=== PATIENT | male | born 2000 | race Caucasian/White ===

== ENCOUNTER 2021-12-07 13:19 | Emergency (ER) | payer OTHER, SELFPAY ==
[2021-12-07 15:11] VITALS: BP 112/70; PULSE 67; RESP 21; TEMP 36.6; O2SAT 99; BMI 18.3
--- NOTE | 2021-12-07 15:30 | HMH.EDUTC ---
[facility] [place] Clinical Impression: Strep throat, Ingrown left big toenail Disposition: Home, Self-Care Condition on Discharge: Good Instructions: Ingrown Toenail, DI for Ingrown Toenail, Cephalexin, DI for Strep Throat Additional Instructions: *Monitor Temp, Over the counter Motrin or Tylenol as directed/as needed Tylenol every 4 hours and Motrin every 6 hours (as long as your family doctor has told you that you can take it) for fever or pain. and straight to ER if unable to lower temp less than 101.0 after medication given *Warm salt water gargles may help to soothe the throat *Throat Lozenges *Warm fluids like tea with honey may help to soothe the throat *Sleep elevated *Humidifier/Vaporizer *If you did not take Penicillin shot or was unable to, start taking antibiotic immediately and make sure that you take it for the FULL length of time although you should start to feel better in 24-48 hours *change toothbrush and toothpaste 24-48 hours after starting to take antibiotics so you do not reinfect yourself Monitor Temp. Tylenol and/or Ibuprofen as needed. ER if fever is no less than 101 despite alternating Tylenol and Ibuprofen * Encourage fluids, water, Gatorade, powerade, pedialyte if /toddler/or child *Cold fluids, popsicles and ice cream may feel good on his throat Follow up IMMEDIATELY for new or worsening symptoms or no Noticeable improvement over the next 48-72 hours. 911 for difficulty breathing or swallowing Soak foot in warm water and epson salt and apply topical antibiotic as directed Follow up with your Family Doctor for further treatment and evaluation Return if needed Prescriptions: cephALEXin [cephALEXin 500mg capsule*] 500 mg PO Q8HP 10 Days #30 cap Transmission Status: P[facility] to [facility] Mupirocin Calcium [Mupirocin 2% Cream 15gm] 1 applicatio TP TID 10 Days #15 gm Transmission Status: Pending to [facility] Referrals: Daniela Amos PA [Primary Care Provider] - As needed Forms: Work/School Release Time of Disposition: 15:43 Medical Decision Making - Jad Inquiry Pt receiving controlled substance: No Jad was queried for this patient: No Vital Signs: 12/07/21 15:11 Temperature 98 F Temperature Source Oral Pulse Rate [Left] 67 Respiratory Rate 21 Blood Pressure [Right Arm] 112/70 Blood Pressure Mean [Right Arm] 84 02 Sat by Pulse Oximetry 99 - Lab Data Lab results reviewed: Yes: I reviewed the patient's lab results. [facility] [place] - General Stated complaint: Infection on toe Time Seen by Provider: 12/07/21 15:30 Mode of Arrival: Ambulatory Source of Information: Patient Limitations: No Limitations Description of Symptoms (Recalled from Triage Doc. by RN): PT C/O INFECTION IN TOE (L) SPREADING THROUGH BODY. X1WK HEENT Symptoms (Recalled from RN notes): No Resp Symptoms (Recalled from RN notes): No Skin Symptoms (Recalled from RN notes): Yes MS Symptoms (Recalled from RN notes): No Functional Status (Recalled from RN notes): WNL - History of Present Illness Provider Complaint: Patient states that he thinks he may have an ingrown toenail that is infected and draining and having sore throat States that his throat is hurting when he swallows and in the sides of his neck and someone told him that he needed to get checked to see if the infection is spreading in his body - Related Data Previous Rx's Medication Instructions Recorded varenicline 0.5 mg (11)-1 mg (42) See Rx Instructions PO PER PKG DIR 01/25/21 tablets in a dose pack 28 Days #53 tab Mupirocin Calcium [Mupirocin 2% 1 applicatio TP TID 10 Days #15 gm 12/07/21 Cream 15gm] cephALEXin [cephALEXin 500mg 500 mg PO Q8HP 10 Days #30 cap 12/07/21 capsule*] Allergies Allergy/AdvReac Type Severity Reaction Status Date / Time No Known Allergies Allergy Unverified 04/21/19 15:02 - Worker's Comp Is this a Worker's Comp case?: No [facility] History - Hepatitis A Screen
[2021-12-07 15:39] LABS: UTC Strep Screen (Rapid) Positive (Negative)
[2021-12-07 15:53] VITALS: BP 112/70; PULSE 67; RESP 21; TEMP 36.6
== END 2021-12-07 15:56 | disposition home or self-care (01) ==
LOC: ER 13:22 → UTC 13:23
PROVIDERS: Nurse Practitioner; Emergency Provider Emergency Medicine; PCP Physician Assistant
DX: J02.0 Streptococcal pharyngitis (principal); L60.0 Ingrowing nail
CPT/HCPCS: 87880; 99212; G0463

== ENCOUNTER 2022-01-28 19:41 | Emergency (ER) | payer OTHER, SELFPAY ==
[2022-01-28 20:12] VITALS: BP 125/68; PULSE 89; RESP 18; TEMP 36.8; O2SAT 99
== END 2022-01-28 20:13 | disposition left against medical advice (07) ==
PROVIDERS: Emergency Provider Emergency Medicine; PCP Physician Assistant
DX: Z53.21 Procedure and treatment not carried out due to patient leaving prior to being seen by health care provider (principal)
CPT/HCPCS: 99211

== ENCOUNTER 2022-05-17 15:17 | Emergency (ER) | payer OTHER, SELFPAY ==
[2022-05-17 16:19] VITALS: BP 122/78; PULSE 69; RESP 19; TEMP 36.7; O2SAT 98; BMI 27.7
--- NOTE | 2022-05-17 16:21 | EXP.UTC ---
Discharge Plan Disposition Patient Disposition: Home, Self-Care Condition: Good Prescriptions Prescriptions: No Action tramadol 50 mg tablet 50 mg PO TID Qty: 10 0RF clindamycin HCl 300 mg capsule 300 mg PO TID 10 Days Qty: 30 0RF terbinafine HCl 250 mg tablet 250 mg PO DAILY Qty: 21 0RF Referrals Referrals: Daniela Amos PA [Primary Care Provider] - Enter time for follow up Activity Restrictions/Add. Instructions Additional Instructions/Restrictions: *Monitor Temp, Over the counter Motrin or Tylenol as directed/as needed Tylenol every 4 hours and Motrin every 6 hours (as long as your family doctor has told you that you can take it) for fever or pain. and straight to ER if unable to lower temp less than 101.0 after medication given *Warm salt water gargles may help to soothe the throat *Throat Lozenges? *Warm fluids like tea with honey may help to soothe the throat? *Sleep elevated *Humidifier/Vaporizer Your throat swab was sent for culture. Those results are typically sent to your primary care. Be sure to follow up in 2-3 days with your family doctor/primary care physician if no improvement so they can review those result and treat if necessary. If you don?t have a primary care doctor, I recommend you get one but in the mean time, you will have to return to a walk in clinic Follow up IMMEDIATELY for new or worsening symptoms or no Noticeable improvement over the next 48-72 hours. 911 for difficulty breathing or swallowing You were tested for today for COVID19 your test result should be back in the next 24-48 hours, you may check your result on the [facility] My Health Portal Make sure to take your Vitamins Vit. C Vit D and Zinc if you can take them Clinical Impressions Clinical Impression: Viral syndrome Stand Alone Forms Stand Alone Forms: Work/School Release Instructions Patient Instructions: Sore Throat, DI for Viral Syndrome, Coronavirus Disease 2019 Discharge ED Provider: Kika Lopez [facility] [place] HPI General Stated complaint: covid test sore throat VELEZ Time Seen by Provider: 05/17/22 16:14 History of Present Illness Provider Complaint: Patient states that he was recently exposed to someone that was positive for Strep throat and COVID States that he started not feeling well feeling achy all over sore throat and headache so he came in to get tested Related Data Previous Rx's Medication Instructions Recorded tramadol 50 mg tablet 50 mg PO TID pain #10 tabs 01/30/22 clindamycin HCl 300 mg capsule 300 mg PO TID 10 days #30 caps 03/24/22 terbinafine HCl 250 mg tablet 250 mg PO DAILY #21 tabs 05/17/22 Allergies Allergy/AdvReac Type Severity Reaction Status Date / Time No Known Allergies Allergy Verified 05/17/22 16:22 [facility] Social History Smoking Status: Never smoker alcohol intake: never substance use type: denies use current occupational status: student ROS Obtained: Yes All systems reviewed & no additional complaints except as documented and Yes Systems reviewed as appropriate & no additional complaints except as documented Constitutional Constitutional: Reports system reviewed and no additional complaints, except as documented, Reports as per HPI, Reports body ache and Reports headache(s) Eyes Eyes: Reports system reviewed and no additional complaints, except as documented and Reports as per HPI ENT Ears, Nose, Mouth, and Throat: Reports system reviewed and no additional complaints, except as documented, Reports headache(s) and Reports sore throat Cardiovascular Cardiovascular: Reports system reviewed and no additional complaints, except as documented and Reports as per HPI Respiratory Respiratory: Reports system reviewed and no additional complaints, except as documented and Reports as per HPI Gastrointestinal Gastrointestingal: Reports system reviewed and no additional complaints, except as documented and as per HPI Neurologic Neurolog
[2022-05-17 16:36] LABS: UTC Strep Screen (Rapid) Negative (Negative)
[2022-05-17 16:54] VITALS: BP 122/78; PULSE 69; RESP 19; TEMP 36.7
== END 2022-05-17 16:54 | disposition home or self-care (01) ==
PROVIDERS: Emergency Provider Nurse Practitioner; PCP Physician Assistant
DX: B34.9 Viral infection, unspecified (principal); Z20.822 Contact with and (suspected) exposure to COVID-19; Z79.899 Other long term (current) drug therapy
CPT/HCPCS: 87880; 99212; C9803; G0463; U0003; U0005

== ENCOUNTER 2022-05-27 18:19 | Emergency (ER) | payer OTHER, SELFPAY ==
[2022-05-27 18:30] VITALS: BP 108/73; PULSE 84; RESP 17; TEMP 37.3; O2SAT 98; BMI 19.0
--- NOTE | 2022-05-27 18:57 | EXP.UTC ---
Discharge Plan Disposition Patient Disposition: Home, Self-Care Condition: Good Prescriptions Prescriptions: No Action tramadol 50 mg tablet 50 mg PO TID Qty: 10 0RF clindamycin HCl 300 mg capsule 300 mg PO TID 10 Days Qty: 30 0RF terbinafine HCl 250 mg tablet 250 mg PO DAILY Qty: 21 0RF Referrals Follow up/Referrals: Daniela Amos PA [Primary Care Provider] - See instructions Clinical Impressions Clinical Impression: Exposure to COVID-19 virus Stand Alone Forms Stand Alone Forms: Work/School Release Instructions Patient Instructions: Coronavirus Disease 2019, Preventing the Spread of Coronavirus Discharge Instructions Discharge ED Provider: Kika Lopez [facility] [place] HPI General Stated complaint: covid test exposed Mode of Arrival: Ambulatory Source of Information: Patient Limitations: No Limitations Time Seen by Provider: 05/27/22 18:57 Description of Symptoms (Recalled from Triage Doc. by RN): COVID TEST D/T EXPOSURE. C/O BODY ACHES, FEVER, AND CHILLS. HEENT Symptoms (Recalled from RN notes): No Resp Symptoms (Recalled from RN notes): No Skin Symptoms (Recalled from RN notes): No MS Symptoms (Recalled from RN notes): No Functional Status (Recalled from RN notes): WNL History of Present Illness Provider Complaint: Patient states that several of his friends tested positive for COVID yesterday and he has been around them states that he has been having fever, chills, body aches and sneezing States that he wanted to get tested to see if he may have it too Related Data Previous Rx's Medication Instructions Recorded tramadol 50 mg tablet 50 mg PO TID pain #10 tabs 01/30/22 clindamycin HCl 300 mg capsule 300 mg PO TID 10 days #30 caps 03/24/22 terbinafine HCl 250 mg tablet 250 mg PO DAILY #21 tabs 05/17/22 Allergies Allergy/AdvReac Type Severity Reaction Status Date / Time No Known Allergies Allergy Verified 05/17/22 16:22 Worker's Comp Is this a Worker's Comp case?: No [facility] Medical History (Updated 05/27/22 @ 19:09 by Kika Lopez APRN) No significant past medical history Social History (Updated 05/27/22 @ 18:47 by Jeanne Fong RN) Smoking Status: Never smoker alcohol intake: never substance use type: denies use current occupational status: student Travel in the last 8 weeks: None ROS Obtained: Yes All systems reviewed & no additional complaints except as documented and Yes Systems reviewed as appropriate & no additional complaints except as documented Constitutional Constitutional: Reports body ache, Reports chills and Reports fever(s) ENT Ears, Nose, Mouth, and Throat: Reports system reviewed and no additional complaints, except as documented, Reports as per HPI and Reports nasal congestion Cardiovascular Cardiovascular: Reports system reviewed and no additional complaints, except as documented and Reports as per HPI Respiratory Respiratory: Reports system reviewed and no additional complaints, except as documented and Reports as per HPI Gastrointestinal Gastrointestingal: Reports system reviewed and no additional complaints, except as documented and as per HPI Integumentary/Breasts Skin/Breast: Reports system reviewed and no additional complaints, except as documented and Reports as per HPI Physical Exam General General appearance: alert and in no apparent distress ENT ENT exam: Present normal exam, normal oropharynx and mucous membranes moist Respiratory Respiratory exam: Present normal lung sounds bilaterally; Absent respiratory distress or wheezes Cardiovascular Cardiovascular exam: Present regular rate and normal rhythm Abdominal Exam Abdominal exam: Present soft; Absent distention or tenderness Neurological Exam Neurological exam: Present alert, oriented X3 and normal gait Medical Decision Making Jad Inquiry Pt receiving controlled substance: No Jad was queried for this patient: No Vital Signs: 05/27/22 18:30 [place]
[2022-05-27 19:10] VITALS: BP 108/73; PULSE 84; RESP 17; TEMP 37.3; O2SAT 98
== END 2022-05-27 19:45 | disposition home or self-care (01) ==
PROVIDERS: Emergency Provider Nurse Practitioner; PCP Physician Assistant
DX: U07.1 COVID-19 (principal); R50.9 Fever, unspecified
CPT/HCPCS: 99212; C9803; G0463; U0003; U0005

== ENCOUNTER 2022-06-26 09:22 | Emergency (ER) | payer OTHER, SELFPAY ==
[2022-06-26 10:00] VITALS: BP 121/62; PULSE 81; RESP 21; TEMP 36.7; O2SAT 97; BMI 19.0
--- NOTE | 2022-06-26 10:15 | EXP.UTC ---
Discharge Plan Disposition Patient Disposition: Home, Self-Care Condition: Good Prescriptions Prescriptions: New mupirocin 2 % ointment 1 applic topical TID 7 Days Qty: 22 0RF amoxicillin-pot clavulanate 875-125 mg Tablet 1 tab PO Q12H Qty: 20 0RF No Action tramadol 50 mg tablet 50 mg PO TID Qty: 10 0RF clindamycin HCl 300 mg capsule 300 mg PO TID 10 Days Qty: 30 0RF terbinafine HCl 250 mg tablet 250 mg PO DAILY Qty: 21 0RF Referrals Follow up/Referrals: Jamison Yung MD [Primary Care Provider] - See instructions Geeta Lopez DPM [Staff Physician] - See instructions Activity Restrictions/Add. Instructions Additional Instructions/Restrictions: Rest the extremity, apply ice for 15 minutes as tolerated three or four times per day, Wear the ranjan wrap for compression, Elevate the extremity as tolerated while you are resting. Take ibuprofen for pain. I sent in a prescription to your pharmacy. Follow up with Dr. Lopez (podiatry). I put in a referral but you need to call her office and schedule an appointment. Follow up with your regular doctor. GO TO THE ER FOR ANY WORSENING SYMPTOMS Clinical Impressions Clinical Impression: Ingrowing toenail with infection Instructions Patient Instructions: DI for Ingrown Toenail, DI for Infected Ingrown Toenail Discharge ED Provider: Medhat Joya [facility] General Stated complaint: pain in left big toe Mode of Arrival: Ambulatory Source of Information: Patient Limitations: No Limitations Time Seen by Provider: 06/26/22 10:15 Description of Symptoms (Recalled from Triage Doc. by RN): PATIENT C/O PAIN TO LEFT GREAT TOE. HE REPORTS APPROX 2 MONTHS AGO HE HAD NAIL CUT OUT ON SAME TOE HEENT Symptoms (Recalled from RN notes): No Resp Symptoms (Recalled from RN notes): No Skin Symptoms (Recalled from RN notes): Yes MS Symptoms (Recalled from RN notes): No Functional Status (Recalled from RN notes): WNL History of Present Illness Provider Complaint: He states that over the past 1 week he has had worsening tenderness and redness of his left great toe medial fold. He had an ingrown nail removed from this site about 2 months ago. He feels like it is ingrown again. He denies any injury. Related Data Previous Rx's Medication Instructions Recorded tramadol 50 mg tablet 50 mg PO TID pain #10 tabs 01/30/22 clindamycin HCl 300 mg capsule 300 mg PO TID 10 days #30 caps 03/24/22 terbinafine HCl 250 mg tablet 250 mg PO DAILY #21 tabs 05/17/22 amoxicillin 875 mg-potassium 1 tab PO Q12H #20 tabs 06/26/22 clavulanate 125 mg tablet mupirocin 2 % topical ointment 1 applic topical TID 7 days #22 06/26/22 grams Allergies Allergy/AdvReac Type Severity Reaction Status Date / Time No Known Allergies Allergy Verified 05/17/22 16:22 Worker's Comp Is this a Worker's Comp case?: No PFSH PFSH Medical History No significant past medical history Social History Smoking Status: Never smoker alcohol intake: never substance use type: denies use current occupational status: student Travel in the last 8 weeks: None ROS Obtained: Yes All systems reviewed & no additional complaints except as documented Constitutional Constitutional: Denies chills and Denies fever(s) Eyes Eyes: Denies eye discharge ENT Ears, Nose, Mouth, and Throat: Denies dizziness, Denies otalgia and Denies sore throat Cardiovascular Cardiovascular: Denies chest pain Respiratory Respiratory: Denies shortness of breath, Denies chest congestion, Denies cough, Denies stridor and Denies wheezing Gastrointestinal Gastrointestingal: Denies nausea or vomiting Musculoskeletal Musculoskeletal: Reports system reviewed and no additional complaints, except as documented and Denies arthralgias Integumentary/Breasts Skin/Breast: Reports as per HPI Neurologic Neurologic: Denies dizz
[2022-06-26 10:34] VITALS: BP 121/62; PULSE 81; RESP 21; TEMP 36.7; O2SAT 97
== END 2022-06-26 10:36 | disposition home or self-care (01) ==
PROVIDERS: Emergency Provider Nurse Practitioner Family; PCP Emergency Medicine
DX: L60.0 Ingrowing nail (principal); Z79.1 Long term (current) use of non-steroidal anti-inflammatories (NSAID); Z79.899 Other long term (current) drug therapy
CPT/HCPCS: 99212; G0463

== ENCOUNTER 2022-08-28 17:42 | Emergency (ER) | payer OTHER, SELFPAY ==
[2022-08-28 19:40] VITALS: BP 115/67; PULSE 82; RESP 18; TEMP 36.6; O2SAT 98; BMI 27.3
[2022-08-28 19:54] LABS: UTC Influenza A Antigen Negative (Negative); UTC Influenza B Antigen Negative (Negative)
--- NOTE | 2022-08-28 19:57 | EXP.UTC ---
Discharge Plan Disposition Patient Disposition: Home, Self-Care Condition: Good Prescriptions Prescriptions: No Action tramadol 50 mg tablet 50 mg PO TID Qty: 10 0RF clindamycin HCl 300 mg capsule 300 mg PO TID 10 Days Qty: 30 0RF terbinafine HCl 250 mg tablet 250 mg PO DAILY Qty: 21 0RF mupirocin 2 % ointment 1 applic topical TID 7 Days Qty: 22 0RF amoxicillin-pot clavulanate 875-125 mg Tablet 1 tab PO Q12H Qty: 20 0RF Referrals Follow up/Referrals: Daniela Amos PA [Primary Care Provider] - See instructions Activity Restrictions/Add. Instructions Additional Instructions/Restrictions: *Monitor Temp, Over the counter Motrin or Tylenol as directed/as needed Tylenol every 4 hours and Motrin every 6 hours (as long as your family doctor has told you that you can take it) for fever or pain. and straight to ER if unable to lower temp less than 101.0 after medication given *Warm salt water gargles may help to soothe the throat *Throat Lozenges? *Warm fluids like tea with honey may help to soothe the throat? *Sleep elevated *Humidifier/Vaporizer Follow up IMMEDIATELY for new or worsening symptoms or no Noticeable improvement over the next 48-72 hours. 911 for difficulty breathing or swallowing You were tested for today for Upper Respiratory Panel with COVID19 your test result should be back in the next 24-48 hours, you may checked your results on the [facility] Clinical Impressions Clinical Impression: Viral syndrome Stand Alone Forms Stand Alone Forms: Work/School Release Instructions Patient Instructions: DI for Viral Syndrome, Diarrhea, Coronavirus Disease 2019 Discharge ED Provider: Kika Lopez [facility] [place] H[place] General Stated complaint: fever, congestion Time Seen by Provider: 08/28/22 19:57 History of Present Illness Provider Complaint: Patient states that he started yesterday with body aches, chills, headache and diarrhea States that he was worried he may have COVID or Flu and wanted to get tested Statse that today he is feeling a little better but was still unable to go to work Related Data Previous Rx's Medication Instructions Recorded tramadol 50 mg tablet 50 mg PO TID pain #10 tabs 01/30/22 clindamycin HCl 300 mg capsule 300 mg PO TID 10 days #30 caps 03/24/22 terbinafine HCl 250 mg tablet 250 mg PO DAILY #21 tabs 05/17/22 amoxicillin 875 mg-potassium 1 tab PO Q12H #20 tabs 06/26/22 clavulanate 125 mg tablet mupirocin 2 % topical ointment 1 applic topical TID 7 days #22 06/26/22 grams Allergies Allergy/AdvReac Type Severity Reaction Status Date / Time No Known Allergies Allergy Verified 05/17/22 16:22 [facility] Disclaimer: The information contained in this section may have been updated after the patient was seen, as this information can be updated by other users. Medical History No significant past medical history Social History Smoking Status: Never smoker alcohol intake: never substance use type: denies use current occupational status: student Travel in the last 8 weeks: None ROS Obtained: Yes All systems reviewed & no additional complaints except as documented and Yes Systems reviewed as appropriate & no additional complaints except as documented Constitutional Constitutional: Reports system reviewed and no additional complaints, except as documented, Reports as per HPI, Reports body ache, Reports chills and Reports headache(s) ENT Ears, Nose, Mouth, and Throat: Reports system reviewed and no additional complaints, except as documented, Reports as per HPI and Reports headache(s) Cardiovascular Cardiovascular: Reports system reviewed and no additional complaints, except as documented and Reports as per HPI Respiratory Respiratory: Reports system reviewed and no additional complaints, except as docume
[2022-08-28 20:00] VITALS: BP 115/67; PULSE 82; RESP 18; TEMP 36.6; O2SAT 98
--- NOTE | 2022-08-29 15:17 | PC.NURSE ---
pt called for covid results
== END 2022-08-28 20:04 | disposition home or self-care (01) ==
PROVIDERS: Emergency Provider Nurse Practitioner; PCP Physician Assistant
DX: R50.9 Fever, unspecified (principal); R09.89 Other specified symptoms and signs involving the circulatory and respiratory systems; B34.9 Viral infection, unspecified
CPT/HCPCS: 87804; 99212; C9803; G0463; U0003; U0005

== ENCOUNTER 2022-12-30 13:00 | Emergency (ER) | payer OTHER, SELFPAY ==
--- NOTE | 2022-12-30 13:56 | EXP.UTC ---
Discharge Plan Disposition Patient Disposition: Home, Self-Care Condition: Good Prescriptions Prescriptions: New prednisone 10 mg tablet 10 mg PO BID 3 Days Qty: 6 0RF [id number] [Bromfed DM] 2-30-10 mg/5 mL Syrup 5 ml PO Q6H PRN (Reason: Cough) Qty: 240 0RF amoxicillin-pot clavulanate 875-125 mg Tablet 1 tab PO Q12H Qty: 20 0RF Referrals Follow up/Referrals: Daniela Amos PA [Primary Care Provider] - See instructions Activity Restrictions/Add. Instructions Additional Instructions/Restrictions: Drink plenty of fluids. Take tylenol or ibuprofen for pain or fever. Take the medications as directed. Follow up with your regular doctor. GO TO THE ER FOR ANY WORSENING SYMPTOMS Throw your tooth brush away and get a new one. Clinical Impressions Clinical Impression: Strep throat Instructions Patient Instructions: Strep Throat, DI for Strep Throat Discharge ED Provider: Medhat Joya [facility] [place] General Stated complaint: sore throat Time Seen by Provider: 12/30/22 13:56 History of Present Illness Provider Complaint: He states that for the past 2 days he has had sore throat, chills, and low grade fever. Related Data Previous Rx's Medication Instructions Recorded amoxicillin 875 mg-potassium 1 tab PO Q12H #20 tabs 12/30/22 clavulanate 125 mg tablet [id number]-[id number] 5 ml PO Q6H PRN Cough #240 mL 12/30/22 2 mg-30 mg-10 mg/5 mL oral syrup (Bromfed DM) prednisone 10 mg tablet 10 mg PO BID 3 days #6 tabs 12/30/22 Allergies Allergy/AdvReac Type Severity Reaction Status Date / Time No Known Allergies Allergy Verified 12/30/22 13:59 [facility] Disclaimer: The information contained in this section may have been updated after the patient was seen, as this information can be updated by other users. Medical History No significant past medical history Social History Smoking Status: Never smoker alcohol intake: never substance use type: denies use current occupational status: student Travel in the last 8 weeks: None ROS Obtained: Yes All systems reviewed & no additional complaints except as documented Constitutional Constitutional: Reports chills and Reports fever(s) Eyes Eyes: Denies eye discharge ENT Ears, Nose, Mouth, and Throat: Reports as per HPI Cardiovascular Cardiovascular: Denies chest pain Respiratory Respiratory: Denies chest congestion and Reports cough Gastrointestinal Gastrointestingal: Reports nausea; Denies abdominal pain, constipation, cramping, diarrhea or vomiting Musculoskeletal Musculoskeletal: Denies arthralgias Integumentary/Breasts Skin/Breast: Denies rash Neurologic Neurologic: Denies paresthesias Physical Exam General General appearance: alert and in no apparent distress Head Head exam: atraumatic, normocephalic and normal inspection Eye Eye exam: Present normal appearance, PERRL and EOMI ENT ENT exam: Present mucous membranes moist and normal external ear exam Expanded ENT Exam TM/Canal exam: Bilateral TM: erythema and bulging Nose exam: Absent sinus tenderness Mouth exam: Present normal external inspection; Absent drooling Teeth exam: Present normal inspection Throat exam: Present tonsillar erythema, tonsillomegaly and tonsillar exudate Neck Neck exam: Present normal inspection, full ROM and trachea midline; Absent tenderness, meningismus or lymphadenopathy Chest Chest inspection: Present normal inspection and symmetric chest wall rise; Absent tenderness Respiratory Respiratory exam: Present normal lung sounds bilaterally; Absent respiratory distress, wheezes or stridor Cardiovascular Cardiovascular exam: Present regular rate and normal rhythm; Absent systolic murmur or diastolic murmur Abdominal Exam Abdominal exam: Present soft and normal bowel sounds; Absent distention, tender
[2022-12-30 13:58] VITALS: BP 124/67; PULSE 89; RESP 20; TEMP 36.7; O2SAT 100; BMI 2831.5
[2022-12-30 14:10] LABS: UTC Strep Screen (Rapid) Positive (Negative)
[2022-12-30 14:36] VITALS: BP 124/67; PULSE 89; RESP 20; TEMP 36.7; O2SAT 100
== END 2022-12-30 14:36 | disposition home or self-care (01) ==
PROVIDERS: Emergency Provider Nurse Practitioner Family; PCP Physician Assistant
DX: J02.0 Streptococcal pharyngitis (principal); R50.9 Fever, unspecified
CPT/HCPCS: 87880; 99212; 99214; G0463

== ENCOUNTER 2023-08-08 12:10 | Emergency (ER) | payer OTHER, SELFPAY ==
[2023-08-08 12:25] VITALS: BP 119/66; PULSE 89; RESP 15; TEMP 36.6; O2SAT 100; BMI 20.3
--- NOTE | 2023-08-08 13:24 | HMH.EDGENADL ---
Discharge Plan Disposition Patient Disposition: Home, Self-Care Prescriptions Prescriptions: New cephalexin 500 mg capsule 1,000 mg PO BID 7 Days Qty: 28 0RF Referrals Follow up/Referrals: Daniela Amos PA [Primary Care Provider] - See instructions John Aly DPM [Physician] - See instructions Activity Restrictions/Add. Instructions Additional Instructions/Restrictions: Call your family doctor to establish care for this visit to the emergency department and schedule follow-up within 48 hours to ensure improvement. If you have any worsening of your condition or any other concerning signs or symptoms, return to the emergency department or your primary care doctor for further evaluation. Antibiotic twice daily for 7 days. Clinical Impressions Clinical Impression: Paronychia, Ingrown toenail Instructions Patient Instructions: DI for Skin Abscess Discharge ED Provider: Nando Dutton General Adult HPI General Chief complaint: Skin/Abscess/Foreign Body Stated complaint: possible infection on Lt toe Time Seen by Provider: 08/08/23 12:18 Mode of Arrival: Ambulatory Source of Information: Patient Limitations: No Limitations Description of Symptoms (Recalled from ER Triage Doc. by RN): 22 yo M presents to ED with c/o left great toe pain. pt reports i pick at it, it gets a little better, then skin grows back over top of it pt reports to picking at the nail himself. symptoms ongong for 2.5 years, current state is 7 months. History of Present Illness HPI narrative: 22-year-old male presenting with left great toe pain. Is been going about 2 to 2-1/2 years. Patient's been diagnosed with ingrown toenail, had it dug out once by primary care doctor, but never seen podiatry. Denies fevers or chills. Is currently draining. Made worse with wearing boots, socks, and work. Related Data Previous Rx's Medication Instructions Recorded cephalexin 500 mg capsule 1,000 mg PO BID 7 days #28 caps 08/08/23 Allergies Allergy/AdvReac Type Severity Reaction Status Date / Time No Known Allergies Allergy Verified 08/08/23 12:31 [facility] Disclaimer: The information contained in this section may have been updated after the patient was seen, as this information can be updated by other users. Medical History No significant past medical history Social History Smoking Status: Never smoker alcohol intake: never substance use type: denies use current occupational status: student Travel in the last 8 weeks: None ROS Obtained: Yes All systems reviewed & no additional complaints except as documented Physical Exam General General appearance: alert and in no apparent distress Respiratory Respiratory exam: Absent respiratory distress or wheezes Cardiovascular Cardiovascular exam: Present regular rate and normal rhythm Extremities Exam Extremities exam: Present other (Left great toe bilateral paronychias, which are draining. No obvious surrounding cellulitis.) Neurological Exam Neurological exam: Present alert; Absent motor sensory deficit Medical Decision Making Medical Records Medical records reviewed: Yes I reviewed the patient's medical records. Jad Inquiry Pt receiving controlled substance: No Jad was queried for this patient: No Vital Signs: 08/08/23 12:25 Temperature 97.9 F Temperature Source Oral Pulse Rate [Left Radial] 89 Respiratory Rate 15 Blood Pressure [Right Arm] 119/66 Blood Pressure Mean [Right Arm] 83 02 Sat by Pulse Oximetry 100 Oxygen Delivery Method Room Air Medical Decision Narrative: 22-year-old male presenting with left great toe pain. Is been going about 2 to 2-1/2 years. Patient's been diagnosed with ingrown toenail, had it dug out once by primary care doctor, but never seen podiatry. Denies fevers or chills. Is currently draining. Made worse wit
[2023-08-08 13:49] VITALS: BP 119/66; PULSE 89; RESP 15; TEMP 36.6
== END 2023-08-08 13:54 | disposition home or self-care (01) ==
PROVIDERS: Emergency Provider Emergency Medicine; PCP Physician Assistant
DX: M79.675 Pain in left toe(s) (principal); L03.032 Cellulitis of left toe; L60.0 Ingrowing nail
CPT/HCPCS: 99283

== ENCOUNTER 2025-03-15 14:00 | Emergency (ER) | payer SELFPAY ==
[2025-03-15 14:47] VITALS: BP 113/61; PULSE 64; RESP 16; TEMP 36.6; O2SAT 99; BMI 20.6
[2025-03-15] MEDS: SULFA/TRIMETHOPRIM 1 TABLET 1 EACH PO (15:19)
[2025-03-15 15:22] VITALS: BP 115/77; PULSE 81; RESP 18; TEMP 36.9; O2SAT 98
--- NOTE | 2025-03-15 15:51 | ED_ITS ---
Discharge Plan Disposition Patient Disposition: Home, Self-Care Condition: Good Prescriptions Prescriptions: New sulfamethoxazole-trimethoprim [Bactrim DS] 800-160 mg tablet 1 tab PO BID 10 Days Qty: 20 0RF No Action cephalexin 500 mg capsule 1,000 mg PO BID 7 Days Qty: 28 0RF Referrals Follow up/Referrals: Daniela Amos PA [Primary Care Provider, Medical] - See instructions Geeta Lopez DPM [Staff Physician, Podiatry] - See instructions Activity Restrictions/Add. Instructions Additional Instructions/Restrictions: You were evaluated in the emergency department today. As we discussed, I recommend follow-up with podiatry for management of your ingrown toenail. Please call Dr. Lopez's office to schedule an appointment as soon as possible. supervising chef your prescription for antibiotic and take the full course as prescribed. Take Tylenol and ibuprofen as needed for pain. Return to the emergency department for new or worsening symptoms. Clinical Impressions Clinical Impression: Ingrowing toenail with infection Stand Alone Forms Stand Alone Forms: Work/School Release Instructions Patient Instructions: DI for Ingrown Toenail, DI for Infected Ingrown Toenail Print Language Print Language: Albanian Discharge ED Provider: Carol Ann Barboza General Adult HPI General Chief complaint: PAIN Stated complaint: L big toe infected, Swollen/Throbbing Time Seen by Provider: 03/15/25 15:02 Mode of Arrival: Ambulatory Source of Information: Patient Description of Symptoms (Recalled from ER Triage Doc. by RN): Pt presents for evaluation of left big toe redness and swelling. Pt states there is also a slight yellow drainage. Pt states he has had issues in the past with ingrown toenails. Pt states it has been like this for a couple months History of Present Illness HPI narrative: This patient is a 24-year-old male without sniffing past medical history presented to the emergency department for evaluation with concern for an ingrown toenail. Patient reports that he has been having issues with an ingrown toenail for about 5 years now but for the last 2 weeks has had some drainage and increased pain. He denies any fevers or systemic symptoms. He notes that he had the ingrown toenail removed before but it has been years. He states that he means to make an appointment with podiatry but has not yet. No other concerns or complaints noted Related Data Previous Rx's ?Medication ?Instructions ?Recorded cephalexin 500 mg capsule 1,000 mg (2 x 500 mg) PO BID 7 08/08/23 days #28 caps sulfamethoxazole 800 1 tab PO BID 10 days #20 tab s 03/15/25 mg-trimethoprim 160 mg tablet (Bactrim DS) Allergies Allergy/AdvReac Type Severity Reaction Status Date / Time No Known Allergies Allergy Verified 08/08/23 12:31 [facility] Disclaimer: The information contained in this section may have been updated after the patient was seen, as this information can be updated by other users. Medical History No significant past medical history Social History Smoking Status: Never smoker alcohol intake: never substance use type: denies use current occupational status: student Travel in the last 8 weeks?: None Have you lived/traveled outside [place] in past 30 days?: No Contact w/someone who lives/traveled outside [place] past 30 days?: No Exposure to someone with infectious disease in past 14 days?: No Do you have a fever (greater than 100.4 F or 38 C)?: No Have you tested positive for COVID-19?: No Exposed to someone with COVID-19 in past 14 days?: No Do you have a sore throat?: No Do you have a cough?: No Do you have any weakness?: No Do you have any diarrhea?: No Are you experiencing any unusual bleeding?: No Do you have any muscle aches/pain?: No Do you have any abdominal pain?: No Are you experiencing loss of taste or smell?: No Other Medical History Have you received the Pneumonia Vaccine: No ROS Obtained: Yes All systems reviewed & no additional complaints except as documented Physical Exam General General appearance: alert and in no apparent distress Head Head exam: atraumatic and normocephalic Eye Eye exam: Present normal appearance, PERRL and EOMI ENT ENT exam: Present normal exam, normal oropharynx, mucous membranes moist and normal external ear exam Neck Neck exam: Present normal inspection, full ROM and trachea midline; Absent tenderness Chest Chest inspection: Present normal inspection and symmetric chest wall rise; Absent tenderness Respiratory Respiratory exam: Present normal lung sounds bilaterally; Absent respiratory distress, wheezes, stridor or accessory muscle use Cardiovascular Cardiovascular exam: Present regular rate and normal rhythm Abdominal Exam Abdominal exam: Present soft; Absent distention, tenderness or guarding Extremities Exam Extremities exam: Present full ROM, normal capillary refill and other (Left great toe has ingrown toenail on both sides with redness on the medial aspect and warmth. No fluctuance or large area concerning for a drainable paronychia. Redness does not streak up the foot.); Absent tenderness or edema Back Exam Back exam: Present normal inspection and full ROM; Absent tenderness Neurological Exam Neurological exam: Present alert, oriented X3, CN II-XII intact and normal gait; Absent motor sensory deficit Psychiatric Psychiatric exam: Present normal affect and normal mood Skin Skin exam: Present warm and dry Medical Decision Making Medical Records Medical records reviewed: Yes I reviewed the patient's medical records. Screening: Per USPSTF and CDC recommendations, given the prevalence of disease in our region, it is our hospital?s policy to screen for HIV and viral Hepatitis for all patients aged 18 and over and those with ongoing risk factors. Jad Inquiry Pt receiving controlled substance: No Vital Signs: 03/15/25 14:47 03/15/25 15:22 Temperature 97.9 F 98.5 F Temperature Source Oral Pulse Rate 81 Pulse Rate [Right] 64 Respiratory Rate 16 18 Blood Pressure 115/77 Blood Pressure [Right Arm] 113/61 Blood Pressure Mean [Right Arm] 78 Blood Pressure Source [Right Arm] Automatic Cuff Blood Pressure Position [Right Arm] Sitting 02 Sat by Pulse Oximetry 99 Oxygen Delivery Method Room Air Room Air Lab Data Lab results reviewed: Yes I reviewed the patient's lab results. Orders (Tests/Meds): ED MEDICATIONS Discontinued Medications Generic Name Dose Route Start Last Admin Trade Name Freq PRN Reason Stop Dose Admin Trimethoprim/Sulfamethoxazole 1 each 03/15/25 15:10 03/15/25 15:19 Sulfa/Trimethoprim 1 Tablet PO 03/15/25 15:11 1 each ONCE ONE Administration Medical Decision Narrative: In summary, this patient is a 24-year-old male presenting to the Emergency Department for evaluation of ingrown toenail with abnormal drainage. Dif ferential diagnoses considered include but are not limited to paronychia, eponychia, infected ingrown toenail, cellulitis. Ruling out the most morbid conditions drove assessment. On exam, the patient is well-appearing. He has an ingrown toenail that has some redness, warmth, and drainage. Given this, will treat with Bactrim. I considered removal here in the emergency department, but he had issues with recurrent ingrown toenails in the past and recurrent infections, so I feel he would benefit from evaluation by podiatry for this. I advise that he call them to schedule an appointment. At this time, I feel he is appropriate for discharge with close podiatry follow-up. Prescription for Bactrim and strict return precautions were given Critical Care Critical Care Time Critical Care Time: No
== END 2025-03-15 15:23 | disposition home or self-care (01) ==
PROVIDERS: Emergency Provider Emergency Medicine; PCP Physician Assistant
DX: M79.675 Pain in left toe(s) (principal); L60.0 Ingrowing nail
CPT/HCPCS: 99283

== ENCOUNTER 2025-03-18 09:45 | Outpatient (CLI) | payer SELFPAY | END 2025-03-18 23:59 | disposition home or self-care (01) | LOC: LAB.DROPOF 03-20 09:45 | PROVIDERS: PCP Podiatrist; Visit Provider Podiatrist | DX: L60.0 Ingrowing nail (principal) | CPT/HCPCS: 87070; 87077; 87186; 87205 ==